=== PATIENT | female | born 1975 | race Two or more races ===

== ENCOUNTER 2019-03-19 04:20 | Emergency (ER) | payer SELFPAY ==
[~2019-03-19] VITALS: Ht 160 cm; Wt 62.6 kg
[2019-03-19 04:25] VITALS: BP 129/85
[2019-03-19 05:04] LABS: BASO % 0 % (0-3); EOS % 1 % (0-3); HEMATOCRIT 47.4 % (36.0-47.0); HEMOGLOBIN 15.7 g/dL (12.0-15.5); LYMPH # 0.3 x10^3/uL (1.0-4.8); LYMPH % 6 % (24-48); MEAN CORPUSCULAR HEMOGLOBIN 31 pg (25-35); MEAN CORPUSCULAR HGB CONC 33 g/dL (31-37); MEAN CORPUSCULAR VOLUME 95 fL (79-100); MONO # 0.3 x10^3/uL (0.0-1.1); MONO % 6 % (0-9); NEUT % 88 % (31-73); PLATELET COUNT 159 x10^3/uL (140-400); RED BLOOD COUNT 5.01 x10^6/uL (3.50-5.40); RED CELL DISTRIBUTION WIDTH 13.4 % (11.5-14.5); WHITE BLOOD COUNT 5.7 x10^3/uL (4.0-11.0)
[2019-03-19 05:14] LABS: CALCIUM 8.8 mg/dL (8.5-10.1); CREATININE 0.8 mg/dL (0.6-1.0); GFR 78.3; POTASSIUM 3.9 mmol/L (3.5-5.1)
--- NOTE | 2019-03-19 05:15 | PHYS DOC ---
Past Medical History Past Medical History: GERD (LARRY ADAM DO) Past Surgical History: (LARRY ADAM DO) Alcohol Use: None Drug Use: None (LARRY ADAM DO) Adult General Chief Complaint Chief Complaint: ABDOMINAL PAIN HPI HPI Patient is a 44 year old female who presents with epigastric abdominal pain, nausea, vomiting and diarrhea that began less than 2 days ago. The pain has progressively worsened since its onset. Patient states that she feels ill and she and her think it might be the "stomach flu". She has vomited twice over the past day which was nonbloody and nonbilious. Since vomiting she has felt weak with some muscle aches and chills. Patient has not had any sick contacts although her states that he has had some mild abdominal di scomfort throughout the same timeframe. Patient has had decreased PO intake as she has been unable to keep fluids down. She denies any fever, hematochezia, melena. Last menstrual period was March 05 and she does not feel that she could be . (LARRY ADAM DO) Review of Systems Review of Systems Constitutional: Reports chills, lethargy. Denies fever. [] Eyes: Denies blurred vision or diplopia [] HENT: Denies nasal congestion or sore throat [] Respiratory: Denies cough or shortness of breath [] Cardiovascular: Reports lightheadedness. Denies chest pain or palpitations. [] GI: Reports abdominal pain, nausea, vomiting and diarrhea. [] : Denies dysuria or hematuria [] Musculoskeletal: Reports myalgias. Denies joint pain. [] Integument: Denies rash or skin lesions [] Neurologic: Reports headache. Denies dizziness. [] Complete review of systems found to be within normal limits, except as documented in this note. (LARRY ADAM DO) Current Medications Current Medications Current Medications Medications (Trade) Dose Ordered Sig/Hiram Start Time Stop Time Status Last Admin Dose Admin Famotidine (Pepcid Vial) 20 mg 1X ONCE 03/19/19 05:30 03/19/19 05:31 DC 03/19/19 05:23 20 MG Ketorolac Tromethamine (Toradol 15mg Vial) 15 mg 1X ONCE 03/19/19 05:30 03/19/19 05:31 DC 03/19/19 05:23 15 MG Ondansetron HCl (Zofran) 4 mg 1X ONCE 03/19/19 05:30 03/19/19 05:31 DC 03/19/19 05:23 4 MG Sodium Chloride 1,000 ml @ 1,000 mls/hr 1X ONCE 03/19/19 06:30 03/19/19 07:29 DC 03/19/19 06:10 1,000 MLS/HR (JORGE FOREMAN MD) Allergies Allergies Allergies Coded Allergies Type Severity Reaction Last Updated Verified hydrocodone Adverse Reaction Mild nausea 03/19/19 Yes (JORGE FOREMAN MD) Physical Exam Physical Exam Constitutional: Uncomfortable appearing female in no acute distress. [] HENT: Normocephalic, atraumatic, oral mucosa dry but without erythema. [] Eyes: EOMI, conjunctiva normal, no discharge. [] Neck: Supple, nontender and without lymphadenopathy [] Cardiovascular:Heart rate regular rhythm, no murmur [] Lungs & Thorax: Bilateral breath sounds clear to auscultation [] Abdomen: Soft without rebound, rigidity or guarding. Tender to palpation in LUQ [] Skin: Warm, dry, no erythema, no rash. [] Back: No tenderness, no CVA tenderness. [] Extremities: Radial pulses +2 b/l, capillary refill < 2 seconds [] Neurologic: Alert and oriented, no focal deficits noted. [] Psychologic: Affect normal, judgement normal, mood normal. [] (LARRY ADAM DO) Current Patient Data Vital Signs Vital Signs Date Time Temp Pulse Resp B/P (MAP) Pulse Ox O2 Delivery O2 Flow Rate FiO2 03/19/19 04:25 97.5 86 14 129/85 (100) 98 Room Air 97.5 (JORGE FOREMAN MD) Lab Values Laboratory Tests Test 03/19/19 04:50 03/19/19 06:30 03/19/19 06:47 White Blood Count 5.7 x10^3/uL (4.0-11.0) Red Blood Count 5.01 x10^6/uL (3.50-5.40) Hemoglobin 15.7 g/dL (12.0-15.5) H Hematocrit 47.4 % (36.0-47.0) H Mean Corpuscular Volume 95 fL (79-100) Mean Corpuscular Hemoglobin 31 pg (25-35) Mean Corpuscular Hemoglobin Concent 33 g/dL (31-37) Red Cell Distribution Width 13.4 % (11.5-14.5) Platelet Count 159 x10^3/uL (140-400) Neutrophils (%) (Auto) 88 % (31-73) H Lymphocytes (%) (Auto) 6 % (24-48) L Monocytes (%) (Auto) 6 % (0-9) Eosinophils (%) (Auto) 1 % (0-3) Basophils (%) (Auto) 0 % (0-3) Neutrophils # (Auto) 5.0 x10^3uL (1.8-7.7) Lymphocytes # (Auto) 0.3 x10^3/uL (1.0-4.8) L Monocytes # (Auto) 0.3 x10^3/uL (0.0-1.1) Eosinophils # (Auto) 0.0 x10^3/uL (0.0-0.7) Basophils # (Auto) 0.0 x10^3/uL (0.0-0.2) Segmented Neutrophils % 73 % (35-66) H Band Neutrophils % 17 % (0-9) H Lymphocytes % 5 % (24-48) L Monocytes % 4 % (0-10) Eosinophils % 1 % (0-5) Platelet Estimate Adequate (ADEQUATE) Ovalocytes Few Sodium Level 137 mmol/L (136-145) Potassium Level 3.9 mmol/L (3.5-5.1) Chloride Level 102 mmol/L (98-107) Carbon Dioxide Level 20 mmol/L (21-32) L Anion Gap 15 (6-14) H Blood Urea Nitrogen 13 mg/dL (7-20) Creatinine 0.8 mg/dL (0.6-1.0) Estimated GFR (Cockcroft-Gault) 78.3 BUN/Creatinine Ratio 16 (6-20) Glucose Level 129 mg/dL (70-99) H Calcium Level 8.8 mg/dL (8.5-10.1) Magnesium Level 1.9 mg/dL (1.8-2.4) Total Bilirubin 0.3 mg/dL (0.2-1.0) Aspartate Amino Transferase (AST) 22 U/L (15-37) Alanine Aminotransferase (ALT) 33 U/L (14-59) Alkaline Phosphatase 70 U/L (46-116) Total Protein 7.6 g/dL (6.4-8.2) Albumin 4.2 g/dL (3.4-5.0) Albumin/Globulin Ratio 1.2 (1.0-1.7) Lipase 90 U/L (73-393) Urine Collection Type Unknown Urine Color Yellow Urine Clarity Clear Urine pH 5.5 Urine Specific [place] >=1.030 Urine Protein Trace mg/dL (NEG-TRACE) Urine Glucose (UA) Negative mg/dL (NEG) Urine Ketones (Stick) Trace mg/dL (NEG) Urine Blood Trace (NEG) Urine Nitrite Negative (NEG) Urine Bilirubin Negative (NEG) Urine Urobilinogen Dipstick 0.2 mg/dL (0.2 mg/dL) Urine Leukocyte Esterase Negative (NEG) Urine RBC 1-2 /HPF (0-2) Urine WBC 1-4 /HPF (0-4) Urine Squamous Epithelial Cells Many /LPF Urine Bacteria Moderate /HPF (0-FEW) Urine Mucus Marked /LPF POC Urine HCG, Qualitative Hcg negative (Negative) Laboratory Tests 03/19/19 04:50 Laboratory Tests 03/19/19 04:50 (JORGE FOREMAN MD) Lab Values Laboratory Tests Test 03/19/19 04:50 White Blood Count 5.7 x10^3/uL (4.0-11.0) Red Blood Count 5.01 x10^6/uL (3.50-5.40) Hemoglobin 15.7 g/dL (12.0-15.5) H Hematocrit 47.4 % (36.0-47.0) H Mean Corpuscular Volume 95 fL (79-100) Mean Corpuscular Hemoglobin 31 pg (25-35) Mean Corpuscular Hemoglobin Concent 33 g/dL (31-37) Red Cell Distribution Width 13.4 % (11.5-14.5) Platelet Count 159 x10^3/uL (140-400) Neutrophils (%) (Auto) 88 % (31-73) H Lymphocytes (%) (Auto) 6 % (24-48) L Monocytes (%) (Auto) 6 % (0-9) Eosinophils (%) (Auto) 1 % (0-3) Basophils (%) (Auto) 0 % (0-3) Neutrophils # (Auto) 5.0 x10^3uL (1.8-7.7) Lymphocytes # (Auto) 0.3 x10^3/uL (1.0-4.8) L Monocytes # (Auto) 0.3 x10^3/uL (0.0-1.1) Eosinophils # (Auto) 0.0 x10^3/uL (0.0-0.7) Basophils # (Auto) 0.0 x10^3/uL (0.0-0.2) Platelet Estimate Pending Sodium Level 137 mmol/L (136-145) Potassium Level 3.9 mmol/L (3.5-5.1) Chloride Level 102 mmol/L (98-107) Carbon Dioxide Level 20 mmol/L (21-32) L Anion Gap 15 (6-14) H Blood Urea Nitrogen 13 mg/dL (7-20) Creatinine 0.8 mg/dL (0.6-1.0) Estimated GFR (Cockcroft-Gault) 78.3 BUN/Creatinine Ratio 16 (6-20) Glucose Level 129 mg/dL (70-99) H Calcium Level 8.8 mg/dL (8.5-10.1) Magnesium Level 1.9 mg/dL (1.8-2.4) Total Bilirubin 0.3 mg/dL (0.2-1.0) Aspartate Amino Transferase (AST) 22 U/L (15-37) Alanine Aminotransferase (ALT) 33 U/L (14-59) Alkaline Phosphatase 70 U/L (46-116) Total Protein 7.6 g/dL (6.4-8.2) Albumin 4.2 g/dL (3.4-5.0) Albumin/Globulin Ratio 1.2 (1.0-1.7) Lipase 90 U/L (73-393) Laboratory Tests 03/19/19 04:50 Laboratory Tests 03/19/19 04:50 (LARRY ADAM DO) EKG EKG [] (LARRY ADAM DO) Radiology/Procedures Radiology/Procedures [] (LARRY ADAM DO) Course & Med Decision Making Course & Med Decision Making Pertinent Labs studies reviewed. (See chart for details) Patient is a 44 year old female who presents with abdominal pain, nausea, vomiting and diarrhea of less than 2 days duration. CBC, CMP, Mg, lipase, UA ordered and are pending at this time. Patient was given fluid bolus, antiemetics, analgesics, and antacids with interval improvement of her symptoms. Sign out provided to Dr. Foreman for further evaluation and final disposition. Discussed current findings and plan with patient and family, who acknowledge understanding and agreement. [] (LARRY ADAM DO) Dragon Disclaimer Dragon Disclaimer This electronic medical record was generated, in whole or in part, using a voice recognition dictation system. (LARRY ADMA DO) Departure Departure Impression: Primary Impression: Abdominal pain Disposition: HOME, SELF-CARE Condition: STABLE Referrals: NO PCP (PCP) Patient Instructions: Abdominal Pain Additional Instructions: Thank you for allowing us to participate in your care today. Return to the emergency department you have any new or worsening symptoms, or if you are concerned for any reason. Return to emergency department if you have any new or concerning symptoms including but not limited to fever, chills, nausea, vomiting, intractable pain, any new rashes, chest pain, shortness of air, uncontrolled bleeding, difficulty breathing, and/or vision loss. Follow up with your primary care physician within 1-2 days for repeat abd exam. Call your Primary Doctor tomorrow and inform them of your visit today. If you do not have a primary care provider we are happy to provide you with a list of our primary care providers contact information. This condition should be evaluated by your primary care physician and any recommended consulting services for continued management within 2 days after discharge. If at any time, you are having difficulty getting into your primary care doctor or a specialist, return to the emergency department. Assessment/Plan Assessment/Plan 44-year-old female presented to the emergency department with abdominal pain and vomiting along with diarrhea. Patient was signed out at 6 AM with plans to follow-up on labs. On reexamination the patient the patient is feeling better. Her abdomen is soft and mildly tender generally without a focus. Negative McBurney's point. Negative Jones sign. Nondistended. I had a risk-benefit disc ussion with the patient about a CAT scan to rule out dangerous pathology versus monitoring with close follow-up. Patient would like to not pursue CAT scan at this time. She would like to be discharged to follow-up with her PCP. She understands the risks. I would prefer that she see her doctor within the next 24-48 hours or return to the emergency department for repeat abdominal exam to ensure that this is not early appendicitis. Patient understands. Clear discharge instructions and return precautions were given. (JORGE FOREMAN MD) Problem Qualifiers Primary Impression: Abdominal pain Abdominal location: generalized Qualified Codes: R10.84 - Generalized abdominal pain LARRY ADAM DO March 19, 2019 05:15 JORGE FOREMAN MD March 19, 2019 08:17
[2019-03-19 05:19] LABS: ALBUMIN 4.2 g/dL (3.4-5.0); ALBUMIN/GLOBULIN RATIO 1.2 (1.0-1.7); MAGNESIUM 1.9 mg/dL (1.8-2.4); TOTAL BILIRUBIN 0.3 mg/dL (0.2-1.0); TOTAL PROTEIN 7.6 g/dL (6.4-8.2)
[2019-03-19] MEDS ORDERED: KETOROLAC 15 MG/ML VIAL. IV ONE (05:30)
[2019-03-19] MEDS ORDERED: ONDANSETRON PF 4 MG/2 ML VIAL. IV ONE (05:30)
[2019-03-19] MEDS ORDERED: IV NORMAL SALINE 1000ML BAG 1,000 ML IV ONE ×2 (05:30→06:30)
[2019-03-19] MEDS ORDERED: FAMOTIDINE 20 MG/2 ML VIAL IVP ONE (05:30)
[2019-03-19 06:54] LABS: CLARITY,URINE CLEAR; COLOR,URINE YELLOW
[2019-03-19 06:55] LABS: BILIRUBIN,URINE NEGATIVE (NEG); NITRITE,URINE NEGATIVE (NEG); PH,URINE 5.5; PROTEIN,URINE TRACE mg/dL (NEG-TRACE); UROBILINOGEN,URINE 0.2 mg/dL (0.2 mg/dL)
[2019-03-19 06:56] LABS: SQUAMOUS EPITHELIAL CELL,UR MANY /LPF
[2019-03-19 06:57] LABS: BACTERIA,URINE MODERATE /HPF (0-FEW)
[2019-03-19 08:03] LABS: % BANDS 17 % (0-9); % EOS 1 % (0-5); % LYMPHS 5 % (24-48); % MONOS 4 % (0-10); % SEGS 73 % (35-66); PLT ESTIMATE ADEQUATE (ADEQUATE)
[2019-03-19 08:04] LABS: OVALOCYTES FEW
[2019-03-19] MEDS ORDERED: ONDA4TAB7 PO (08:21)
[2019-03-19] MEDS ORDERED: HYDR-2761 PO (08:21)
== END 2019-03-19 08:59 | disposition home or self-care (01) ==
LOC: ER 04:20
DX: R10.13 Epigastric pain (principal); R11.2 Nausea with vomiting, unspecified; R10.12 Left upper quadrant pain; R19.7 Diarrhea, unspecified; R51 Headache; M79.18 Myalgia, other site; K21.9 Gastro-esophageal reflux disease without esophagitis; Z98.890 Other specified postprocedural states; Z88.5 Allergy status to narcotic agent
CPT/HCPCS: 36415; 80053; 81001; 81025; 83690; 83735; 85007; 85025; 87086; 96361; 96374; 96375; 99284; J1885; J2405; J3490; J7030